=== PATIENT | female | born 1985 | race African-American/Black ===

== ENCOUNTER 2018-01-29 21:07 | Emergency (ER) | payer SELFPAY ==
[2018-01-29 21:49] LABS: Bilirubin Small (Negative); Blood, Urine Moderate (Negative); Clarity TURBID (Clear); Glucose, Urine (Dipstick) Negative (Negative); Leukocyte Negative (Negative); Nitrite Negative (Negative); Protein, Urine (Dipstick) 30 mg/dL (Neg-Trace); Specific Gravity, Urine 1.025 (1.002-1.036); pH, Urine 5.5 (5.0-9.0)
[2018-01-29 21:50] LABS: Pregnancy Test - Urine (BHCG) Negative (Negative); Pregu Control Background? CLEAR/WHITE (CLR/WHITE); Pregu Control Bar Appear? YES (CONTROL BAR); Specific Gravity 1.025 (1.002-1.036)
[2018-01-29 21:51] LABS: Bacteria/HPF None Seen HPF (None Seen); Hyaline Casts/LPF 7-10 HYALINE CAST LPF (0-3 Hyaline)
[2018-01-29] MEDS ORDERED: Ketorolac Tromethamine 60 MG/2 ML VIAL ONE (22:18)
[2018-01-29 22:37] LABS: ALT (SGPT) 8 U/L (8-55); AST (SGOT) 18 U/L (5-34); Albumin 4.3 g/dL (3.5-5.0); Alkaline Phosphatase 91 U/L (40-150); Anion Gap 14 mmol/L (10-20); BUN (Urea Nitrogen) 9 mg/dL (7.0-18.7); Bilirubin, Total 0.8 mg/dL (0.2-1.2); Calc. Creatinine Clearance 0 mL/min (70-130); Calcium 9.2 mg/dL (7.8-10.44); Carbon Dioxide 23 mmol/L (22-29); Chloride 105 mmol/L (98-107); Estimated GFR-MDRD Greater than 90; Globulin 3.6 g/dL (2.4-3.5); Glucose 103 mg/dL (70-105); Lipase 10 U/L (8-78); Potassium 4.1 mmol/L (3.5-5.1); Protein, Total 7.9 g/dL (6.0-8.3); Sodium 138 mmol/L (136-145)
[2018-01-29 22:41] LABS: CKMB 0.7 ng/mL (0-6.6); Troponin I Less than 0.010 ng/mL (< 0.028)
[2018-01-29 22:47] LABS: #Lymphocytes 1.5 thou/uL (1.20-3.40); #Monocytes 0.6 thou/uL (0.11-0.59); #Neutrophils 9.3 thou/uL (1.40-6.50); %Basophils 0.4 % (0.0-1.0); %Lymphocytes 12.9 % (21.0-51.0); %Monocytes 5.6 % (0.0-10.0); %Neutrophils 81.1 % (42.0-75.0); Anisocytosis MODERATE=16-30 cells (100X) (0-5/hpf); Hemoglobin 7.6 g/dL (12.0-16.0); Hypochromia SLIGHT = 6-15 cells (100X) (0-5/hpf); Large Platelets SLIGHT; MDiff Complete? YES; Macrocytosis SLIGHT = 6-15 cells (100X) (0-5/hpf); Mean Corpuscular HGB CONC 29.6 g/dL (32.0-36.0); Mean Corpuscular Hemoglobin 18.8 pg (27.0-31.0); Mean Corpuscular Volume 63.6 fL (78.0-98.0); Mean Platelet Volume 5.9 fL (7.4-10.4); Microcytosis SLIGHT = 6-15 cells (100X) (0-5/hpf); PLT Morphology Comment Appears Adequate; Platelet Count 518 thou/uL (130-400); RBC Distribution Width 30.6 % (11.5-14.5); Red Blood Cell (RBC) Count 4.04 mill/uL (4.20-5.40); White Blood Cell (WBC) Count 11.5 thou/uL (4.8-10.8)
[2018-01-29] MEDS ORDERED: Ondansetron ODT 4 MG TAB ONE (23:24)
== END 2018-01-29 23:30 | disposition home or self-care (01) ==
LOC: ERS 21:07
DX: R10.30 Lower abdominal pain, unspecified (principal); D64.9 Anemia, unspecified; F17.210 Nicotine dependence, cigarettes, uncomplicated
CPT/HCPCS: 36415; 80053; 81003; 81015; 81025; 82150; 82553; 83690; 84484; 85025; 96372; J1885; Q0162

== ENCOUNTER 2020-07-13 18:57 | Inpatient (IN) | payer MEDICAID, SELFPAY ==
[2020-07-13] MEDS ORDERED: Ibuprofen 800 MG TAB ONE (19:36)
[2020-07-13 20:59] LABS: INR-International Normal Ratio 1.1; Prothrombin Time 14.2 sec (12.0-14.7)
[2020-07-13 21:00] LABS: PTT 28.3 sec (22.9-36.1)
[2020-07-13 21:04] LABS: Mean Corpuscular HGB CONC 29.4 g/dL (32.0-36.0); Mean Corpuscular Hemoglobin 17.3 pg (27.0-31.0); Mean Corpuscular Volume 58.8 fL (78.0-98.0); Platelet Count 4 thou/uL (130-400); RBC Distribution Width 28.3 % (11.5-14.5); Red Blood Cell (RBC) Count 3.06 mill/uL (4.20-5.40); Reflex for Review?? YES; White Blood Cell (WBC) Count 8.8 thou/uL (4.8-10.8)
[2020-07-13 21:05] LABS: Hemoglobin 5.3 g/dL (12.0-16.0)
[2020-07-13 21:06] LABS: ALT (SGPT) 14 U/L (8-55); AST (SGOT) 21 U/L (5-34); Albumin 4.5 g/dL (3.5-5.0); Alkaline Phosphatase 84 U/L (40-110); Anion Gap 15 mmol/L (10-20); BUN (Urea Nitrogen) 11 mg/dL (7.0-18.7); Bilirubin, Total 0.8 mg/dL (0.2-1.2); Calc. Creatinine Clearance 0 mL/min (70-130); Calcium 8.6 mg/dL (7.8-10.44); Carbon Dioxide 20 mmol/L (22-29); Chloride 108 mmol/L (98-107); Globulin 3.8 g/dL (2.4-3.5); Glucose 103 mg/dL (70-105); Potassium 3.8 mmol/L (3.5-5.1); Protein, Total 8.3 g/dL (6.0-8.3); Sodium 139 mmol/L (136-145)
[2020-07-13 21:17] LABS: #Lymphocytes 2.4 thou/uL (1.20-3.40); #Monocytes 0.5 thou/uL (0.11-0.59); #Neutrophils 5.9 thou/uL (1.40-6.50); %Eosinophils 0.1 % (0.0-10.0); %Lymphocytes 27.7 % (21.0-51.0); %Monocytes 5.3 % (0.0-10.0); %Neutrophils 66.8 % (42.0-75.0); Hypochromia MARKED = >30 cells (100X) (0-5/hpf); MDiff Complete? YES; Microcytosis MARKED = >30 cells (100X) (0-5/hpf); Platelet Morphology Comment Appears Decreased; Target Cells MODERATE= 6-15 cells (100X) (0-1/hpf); Tear Drops SLIGHT = 2-5 cells (100X) (0-1/hpf)
[2020-07-13 21:29] LABS: Bacteria/HPF None Seen HPF (None Seen); Bilirubin Negative (Negative); Blood, Urine 1+ (Negative); Clarity Clear (Clear); Glucose, Urine (Dipstick) Normal (Negative); Ketone, Urine Negative (Negative); Leukocyte 25 Leu/uL (Negative); Mucous/LPF 1+ LPF (<2+); Nitrite Negative (Negative); Protein, Urine (Dipstick) 30 mg/dL (Neg-Trace); Renal Epithelial 0-3 HPF (None Seen); Specific Gravity, Urine 1.025 (1.002-1.036); Squamous Epithelial 0-3 HPF (0-3); Urobilinogen Normal mg/dL (Less than 2); pH, Urine 5.5 (5.0-9.0)
--- NOTE | 2020-07-13 22:27 | PDOC.FPRHP ---
- History of Present Illness Chief Complaint: Mouth sores History of Present Illness: Patient is a 35 yo female with no significant PMH who presents to the ED for bleeding mouth sores. Per the patient, she noticed the sores 1-2 days ago and they began bleeding shortly after. She reports that she has never had these sores before and that they are a little painful. While in the ED, patient was found to have a Hgb of 5.3 and Plts of 4. During my examination, patient endorsed SOB, CP, fatigue, and weakness for the past week. She denies sick contacts, new medication, or recent illness. She reports that she has heavy men strual cycles that began 3 years ago. She reports that she uses 9 super plus tampons a day along with a pad. Her periods range from 4-11 days. She denies ever being told that she is anemic, but reports that her sister has anemia. ED Course: 1 L NS - Allergies/Adverse Reactions Allergies Allergy/AdvReac Type Severity Reaction Status Date / Time No Known Drug Allergies Allergy Unverified 07/13/20 22:38 - History PMHx: Denies PMH PSHx: CS x 2 FHx: Sister with anemia Social: Smokes 2-4 cigarettes per day since her 20s, drinks 1 limearita each night, denies drugs, not employeed - Review of Systems General: reports: fatigue. denies: fever/chills Eyes: reports: vision changes. denies: eye pain ENT: denies: nasal congestion, rhinorrhea Respiratory: reports: shortness of breath. denies: cough Cardiovascular: reports: chest pain, palpitation Gastrointestinal: denies: nausea, vomiting, abdominal pain, GI bleeding Genitourinary: denies: dysuria, polyuria Skin: reports: rashes. denies: jaundice Musculoskeletal: denies: pain, swelling Neurological: reports: weakness. denies: syncope Psychological: denies: anxiety, depression - Vital signs BP: 109/76 HR: 109 RR: 20 Tmax: 98.5 Pox: 100% on RA Wt: 90 kg - Physical Exam -Constitutional: Anxious appearing, tearful throughout exam HEENT: normocephalic and atraumatic -HEENT: cunjuctival pallor, poor dentition, 2 buccal hematomas on the right buccal membrane Neck: supple, FROM Heart: RRR, normal S1/S2 Lungs: CTAB, no respiratory distress Abdomen: soft, non-tender Musculoskeletal: normal structure, normal tone Neurological: no focal deficit, normal sensation -Skin: pale, dry skin; pale finger nails -Heme/Lymphatic: Petechia noted on the chest, near the right axilla Psychiatric: good judgment and insight -Psychiatric: nervous and anxious appearing, cooperative with exam FMR H&P: Results - Labs Result Diagrams: 07/13/20 20:36 07/13/20 20:36 Lab results: WBC 8.8 thou/uL (4.8-10.8) 07/13/20 20:36 Hgb 5.3 g/dL (12.0-16.0) L* 07/13/20 20:36 Hct 18.0 % (36.0-47.0) L 07/13/20 20:36 MCV 58.8 fL (78.0-98.0) L 07/13/20 20:36 Plt Count 4 thou/uL (130-400) L* 07/13/20 20:36 Neutrophils % 66.8 % (42.0-75.0) 07/13/20 20:36 ESR Westergren 28 mm/hr (Less than 20) H 07/13/20 20:36 Sodium 139 mmol/L (136-145) 07/13/20 20:36 Potassium 3.8 mmol/L (3.5-5.1) 07/13/20 20:36 Chloride 108 mmol/L (98-107) H 07/13/20 20:36 Carbon Dioxide 20 mmol/L (22-29) L 07/13/20 20:36 BUN 11 mg/dL (7.0-18.7) 07/13/20 20:36 Creatinine 0.85 mg/dL (0.6-1.1) 07/13/20 20:36 Glucose 103 mg/dL (70-105) 07/13/20 20:36 Calcium 8.6 mg/dL (7.8-10.44) 07/13/20 20:36 Total Bilirubin 0.8 mg/dL (0.2-1.2) 07/13/20 20:36 AST 21 U/L (5-34) 07/13/20 20:36 ALT 14 U/L (8-55) 07/13/20 20:36 Alkaline Phosphatase 84 U/L (40-110) 07/13/20 20:36 C-Reactive Protein Less than 0.50 mg/dL (= or < 0.5) 07/13/20 20:36 Serum Total Protein 8.3 g/dL (6.0-8.3) 07/13/20 20:36 Albumin 4.5 g/dL (3.5-5.0) 07/13/20 20:36 Urine Ketones Negative mg/dL (Negative) 07/13/20 21:08 Urine Blood 1+ (Negative) A 07/13/20 21:08 Urine Nitrite Negative (Negative) 07/13/20 21:08 Ur Leukocyte Esterase 25 Dioni/uL (Negative) A 07/13/20 21:08 Urine RBC 4-6 HPF (0-3) A 07/13/20 21:08 Urine WBC 4-6 HPF (0-3) A 07/13/20 21:08 Ur Squamous Epith Cells 0-3 HPF (0-3) 07/13/20 21:08 Urine Bacteria None Seen HPF (None Seen) 07/13/20 21:08 FMR H&P: A/P - Problem List (1) Microcytic anemia Current Visit: Yes Status: Acute Code(s): D50.9 - IRON DEFICIENCY ANEMIA, UNSPECIFIED (2) Thrombocytopenia Current Visit: Yes Status: Acute Code(s): D69.6 - THROMBOCYTOPENIA, UNSPECIFIED - Plan Microcytic Anemia - reports SOB, CP, fatigue, weakness - Hgb of 5.3 on admission, MCV: 58.8 - will transfuse 2 units pRBCs and repeat H/H 4 hours post transfusion - denies family history of thalassemia - will obtain LDH, TSH, peripheral smear, iron studies, haptoglobin, HIV, Hep panel - will consult heme/onc in the morning as patient may need bone marrow biopsy Thrombocytopenia - Plts: 4, will transfuse 1 unit and recheck as above - Petechiae on exam and bleeding from buccal hematoms Buccal Hematomas - likely 2/2 to the above - will continue to monitor PCP: none Code: Full PPx: not indicated Diet: Regular IVF: SL Dispo: Admit to oncology for further evaluation; likely LOS > 48 hours FMR H&P: Upper Level - Plan Date/Time: 07/13/202223 Ronaldo Palumbo DO, have evaluated this patient and agree with findings/plan as outlined by internet consultant resident. Pertinent changes/additions are listed here. This is a 35 yo female with no significant pmh who presents to the ER with a cc of mouth sores. She states the sores have been present since before COVID-19 pandemic but recently worsened. She reports they are painful and associated with bleeding. She does admit poor dentition but has not seen a dentist recently. She reports associated orthostasis, dizziness, SOB with exertion, occasional chest pain, palpitations, weakness, and fatigue. She states she had 2 c-sections, one in 2009 and one in 2002 and did not require any blood products at that time. She denies any lifetime blood transfusion or any personal history or familial history of blood disorders. She denies any headaches, focal weakness, hematochezia, melana, abdominal pain, or change in sensation. She states she has swallowed some blood that is making her nauseated. She reports tobacco abuse of ~2 cigarettes per and use to drink a 24 oz beer every night. She denies drug use. No other surgeries Objective: Vitals: BP 109/76, HR 109, RR 20, Temp 98.5, SpO2 100% on RA, Wt 90 kg General: Mildly anxious HEENT: Pt has bucal mucosal hematomas bilaterally, poor dentition, AT/NC, pale conjunctiva Cardio: tachycardic, regular rhythm, no murmurs Lungs: CTAB Abdomen: Soft, non-tender, BS+ Extremities: No swelling, pulses 2+ Skin: petechiae on chest Neuro: Grossly intact A/P Symptomatic hypochromic, microcytic anemia -Admit to medical -Hgb 5.3, will transfuse 2 units of PRBCs -MCV of 55 concerning for hemaglobinopathy, will consult Hematology in the AM -Pending Hep C, HIV, peripheral smear, LDH, TSH -Would consider electropheresis and bone marrow biopsy Symptomatic thrombocytopenia -Platlets of 4,000, pending transfusion of 1 unit of aphoresis platelets -Will monitor and evaluate as above -Coags normal Code: Full Prophylaxis: None Family: None at bedside Fluids: SL Diet: Regular Disposition: DC in 1-2 days PCP: None
[2020-07-14 00:33] LABS: HBCM Index 0.06 S/CO (0-0.79); HBSAg Index 0.14 S/CO (0-0.99); HIV (1/2) Antibody/Antigen Non-Reactive (NonReactive); HIV 1/2 INDEX 0.18 S/CO (<1.00); Hep A IgM AB Non-Reactive (NonReactive); Hep A IgM S/CO 0.06 S/CO (0-0.79); Hep B Surf Ag Non-Reactive S/CO (NonReactive); Hep C IgG Ab Non-Reactive (NonReactive); Hep C Index 0.08 S/CO (0-0.79); Hepatitis B Core IgM Abs Non-Reactive (NonReactive)
[2020-07-14] MEDS ORDERED: Acetaminophen 325 MG TAB ONE (02:31)
[2020-07-14] MEDS: Acetaminophen 325 MG TAB PO PRN ×3 (02:32→20:09)
--- NOTE | 2020-07-14 06:02 | PDOC.FM ---
- Subjective Subjective: Pt resting in bed comfortably this AM. No acute events overnight. States that her mouth is sore and painful and has been spitting out blood overnight. She is tired and fatigued this AM. - Objective Result Diagrams: 07/13/20 20:36 07/13/20 20:36 Phys Exam - Physical Examination Constitutional: NAD HEENT: moist MMs poor dentition, buccal hematomas noted more prominent on R buccal mucosa Neck: supple Respiratory: no wheezing, no rales, no rhonchi, clear to auscultation bilateral Cardiovascular: RRR, no significant murmur, no rub Gastrointestinal: soft, non-tender, no distention, positive bowel sounds Musculoskeletal: pulses present Neurological: moves all 4 limbs Psychiatric: normal affect, A&O x 3 Skin: normal turgor Dx/Plan - Plan Plan: Symptomatic hypochromic, microcytic anemia -Hgb 5.3, in the process of transfusion 2 PRBCs -Hepatitis studies wnl -Peripheral smear, Electrophoresis, Iron studies pending -Monitoring H/H and platelets with CBCs -Will Consult Hematology Symptomatic thrombocytopenia -Platelets of 4,000, pending transfusion of 1 unit of aphoresis platelets, will plan to keep plt above 40K -Will monitor and evaluate as above -Coags normal -Will start decadron for ITP Status of unemployment/uninsured -CM consulted DIET: Regular VTE: None PCP: None CODE: FULL Dispo as of 07/14: Pending laboratory studies. Will consult hematology for further recommendations.
[2020-07-14 06:26] LABS: SARS-CoV-2 MS2 Positive; SARS-CoV-2 N Gene Negative; SARS-CoV-2 S Gene Negative; SARS-CoV-2 by NAA Not Detected (NotDetected); SARS-CoV-2 orf1ab Negative
[2020-07-14 08:27] LABS: #Basophils 0.1 thou/uL (0.0-0.2); #Lymphocytes 2.5 thou/uL (1.20-3.40); #Monocytes 0.5 thou/uL (0.11-0.59); #Neutrophils 4.7 thou/uL (1.40-6.50); %Basophils 1.5 % (0.0-1.0); %Eosinophils 0.1 % (0.0-10.0); %Monocytes 6.5 % (0.0-10.0); %Neutrophils 59.9 % (42.0-75.0); Hemoglobin 6.4 g/dL (12.0-16.0); Mean Corpuscular HGB CONC 31.8 g/dL (32.0-36.0); Mean Corpuscular Hemoglobin 21.4 pg (27.0-31.0); Mean Corpuscular Volume 67.5 fL (78.0-98.0); Platelet Count 2 thou/uL (130-400); RBC Distribution Width 30.1 % (11.5-14.5); Red Blood Cell (RBC) Count 2.96 mill/uL (4.20-5.40); White Blood Cell (WBC) Count 7.9 thou/uL (4.8-10.8)
[2020-07-14 08:33] LABS: Iron 127 ug/dL (50-170); Iron Binding Capacity, Total 498 mcg/dL (265-497)
[2020-07-14 08:34] LABS: Anion Gap 13 mmol/L (10-20); BUN (Urea Nitrogen) 9 mg/dL (7.0-18.7); Calc. Creatinine Clearance 0 mL/min (70-130); Calcium 8.2 mg/dL (7.8-10.44); Carbon Dioxide 21 mmol/L (22-29); Chloride 109 mmol/L (98-107); Glucose 97 mg/dL (70-105); Iron 125 ug/dL (50-170); Potassium 3.5 mmol/L (3.5-5.1); Sodium 139 mmol/L (136-145)
[2020-07-14 08:50] LABS: Ferritin 4.06 ng/mL (10-291)
[2020-07-14 09:02] VITALS: BMI 34.4
[2020-07-14 10:06] LABS: Hypochromia MARKED = >30 cells (100X) (0-5/hpf); MDiff Complete? YES; Microcytosis MARKED = >30 cells (100X) (0-5/hpf); Platelet Morphology Comment Appears Decreased; Polychromasia MODERATE = 3-4 cells (100X) (0-2/hpf); Schistocytes SLIGHT = 2-5 cells (100X) (0-1/hpf)
[2020-07-14] MEDS ORDERED: Dexamethasone 4 MG TAB PO SCH (11:15)
[2020-07-14 12:48] LABS: Hemoglobin 6.1 g/dL (12.0-16.0)
[2020-07-14 12:54] LABS: Platelet Count 4 thou/uL (130-400)
--- NOTE | 2020-07-14 15:23 | HP ---
I have examined the patient and discussed the case with Dr. Yusuf. I agree with her assessment and plan. HISTORY OF PRESENT ILLNESS: Briefly, Ms. Lacey is a pleasant 35-year-old black female with no significant past medical history, who presented to the emergency department where she was noted to have some bleeding, mouth sores x2 days. During her workup, she was found to have a hemoglobin of 5.3 and platelets of 4000. She also states that she has been having extremely heavy menstrual cycles that started three years ago. Her periods also lasting were from 4 to 11 days. PHYSICAL EXAMINATION: VITAL SIGNS: Her blood pressure was 109/76, heart rate was 100, respirations 20. She is afebrile and her room air pulse ox is 100%. GENERAL: She was slightly anxious appearing, but in no acute distress. HEENT: ENT, no erythema or exudate. Did have some conjunctival pallor. NECK: Supple. CARDIAC: Heart rhythm regular. No gallop or murmur noted. LUNGS: Clear. ABDOMEN: Flat and soft. NEUROLOGIC: No focal deficits. LABORATORY DATA: CBC; white count was 8800, hemoglobin was 5.3, hematocrit was 18, MCV was 58.8, and her platelets were 4000. Her white count differential was normal. Chemistries; sodium 139, potassium 3.8, chloride 108, bicarb 20, BUN 11, creatinine 0.85, glucose is 103. Her iron was 127, TIBC was 498, iron saturation 26%, and her ferritin was 4. HIV was negative. SARS negative. Hep C negative. ASSESSMENT: 1. Profound anemia. 2. Profound thrombocytopenia, possibly ITP. PLAN: We will transfuse the patient to hemoglobin of above 7. We will consult with Hematology and give the patient Decadron in anticipation that this is possibly ITP. She had already been given platelets, but this does not seem to have raised her platelet count substantially. Further workup and treatment to occur after consultation with Hematology. Our initial impression that this is likely ITP causing a profound thrombocytopenia resulting in very heavy menstrual bleeding causing anemia. However, we will work this up further after discussion with Hematology. Job ID: [id number]
--- NOTE | 2020-07-14 17:15 | CON ---
DATE OF CONSULTATION: 07/14/2020 HISTORY OF PRESENT ILLNESS: Ms. Lacey is a 35-year-old female, who noticed approximately 2 days prior to admission that she had bleeding of her gums and some mouth sores on her tongue and on her cheeks. She also has noticed over the last 4 to 6 weeks that she has had heavy menstrual cycles. They have been chronically heavy, but they were much worse over the last month. She has been bleeding with lots of clots and has not been taking any iron. She does admit some weakness and fatigue as well as shortness of breath, but no presyncope or syncope. She presented to the emergency room because of the gum bleeding and was found to have platelets of 4000. She was given platelets and a blood transfusion. Her hemoglobin did improve from 5.3 to 6.4, but her platelets went down from 4 to 2. She states that her gums are a little bit better and her tongue seems better. She is not currently having menstrual bleeding. She also has noticed a rash on her chest as well as on her legs. PAST MEDICAL HISTORY: Negative. MEDICATIONS: 1. Tylenol 650 mg p.o. q.4 hours p.r.n. 2. Dexamethasone 40 mg p.o. q.a.m., started this morning after the platelets of 4000. ALLERGIES: NO KNOWN DRUG ALLERGIES. SOCIAL HISTORY: She lives in [place] and has 2 children. She denies anything other than occasional alcohol use. No tobacco use. FAMILY HISTORY: Noncontributory. Negative for any hematologic diseases. REVIEW OF SYSTEMS: Otherwise, 10-point review of systems is negative. PHYSICAL EXAMINATION: VITAL SIGNS: Temperature 99.1, pulse 88, O2 saturation 100% on room air, and blood pressure 109/68. GENERAL: She is alert, awake, and oriented x3, in no acute distress. Quite, pleasant. HEENT: Extraocular muscles are intact. Pupils are reactive to light. Sclerae are anicteric. She does have oral petechiae, but no bleeding in the mouth. CARDIOVASCULAR: Regular rhythm. LUNGS: Clear to auscultation. ABDOMEN: Hypoactive bowel sounds. Soft, nontender, and nondistended. EXTREMITIES: No edema. SKIN: She does have petechial rash pretibially as well as on her chest. LABORATORY DATA: White blood cell count 7.9; hemoglobin 6.4, up from 5.3 on admission; hematocrit 20; platelets 2000 down from 4000. There are no significant schistocytes. She does have polychromasia and hypochromia on her smear. Sodium 139, potassium 3.5, chloride 109, CO2 of 21, BUN 9, creatinine 0.7, glucose 97, and calcium 8.2. Ferritin 4 after a blood transfusion. AST and ALT are normal. Total bilirubin normal. LDH normal with a normal C-reactive protein. ASSESSMENT: Ms. Lacey is a 35-year-old female with,. 1. 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 2. Microcytic anemia consistent with iron deficiency anemia. 3. Weakness secondary to the above. PLAN: 1. We discussed the thrombocytopenia. She has no microangiopathic changes and has no signs of renal failure, no altered mental status. Normal coagulation studies. Because of this, I do not think she has TTP. I suspect this is ITP with an associated bleeding and iron deficiency anemia. She has only been given one dose of dexamethasone. What her platelets are doing tomorrow will be important. If her platelets have not started to increase in the next day or two, I would recommend IVIG, but currently, I do not think she has signs of bleeding. 2. I would recommend giving her IV iron. She is symptomatically stable and therefore blood transfusion may not be warranted, but if her hemoglobin falls again, I would recommend another blood transfusion. 3. We will follow with you. Job ID: [id number]
[2020-07-14 18:35] LABS: Hemoglobin 6.2 g/dL (12.0-16.0); Platelet Count 2 thou/uL (130-400)
[2020-07-15 03:05] LABS: Anion Gap 13 mmol/L (10-20); BUN (Urea Nitrogen) 7 mg/dL (7.0-18.7); Calc. Creatinine Clearance 164 mL/min (70-130); Calcium 8.6 mg/dL (7.8-10.44); Carbon Dioxide 21 mmol/L (22-29); Chloride 111 mmol/L (98-107); Glucose 142 mg/dL (70-105); Potassium 4.2 mmol/L (3.5-5.1); Sodium 141 mmol/L (136-145)
[2020-07-15 03:17] LABS: #Lymphocytes 0.6 thou/uL (1.20-3.40); #Monocytes 0.1 thou/uL (0.11-0.59); #Neutrophils 6.2 thou/uL (1.40-6.50); %Eosinophils 0.1 % (0.0-10.0); %Lymphocytes 8.4 % (21.0-51.0); %Monocytes 0.9 % (0.0-10.0); %Neutrophils 90.6 % (42.0-75.0); Anisocytosis MODERATE=16-30 cells (100X) (0-5/hpf); Hemoglobin 7.3 g/dL (12.0-16.0); Hypochromia MODERATE=16-30 cells (100X) (0-5/hpf); MDiff Complete? YES; Mean Corpuscular HGB CONC 31.8 g/dL (32.0-36.0); Mean Corpuscular Hemoglobin 22.3 pg (27.0-31.0); Mean Corpuscular Volume 70.2 fL (78.0-98.0); Platelet Count 2 thou/uL (130-400); Platelet Morphology Comment Appears Decreased; Polychromasia SLIGHT = 2-3 cells (100X) (0-2/hpf); RBC Distribution Width 30.9 % (11.5-14.5); Red Blood Cell (RBC) Count 3.25 mill/uL (4.20-5.40); White Blood Cell (WBC) Count 6.8 thou/uL (4.8-10.8)
--- NOTE | 2020-07-15 05:43 | PDOC.FM ---
- Subjective Subjective: Pt resting comfortably in bed this AM. No acute events overnight. - Objective Vital Signs & Weight: Vital Signs (12 hours) Temp Pulse Pulse Resp BP BP BP 07/15/20 04:00 98.6 F 77 14 115/78 07/14/20 23:21 98.1 F 89 16 118/57 L 07/14/20 21:50 97.9 F 78 18 124/73 07/14/20 19:00 98.4 F 90 16 123/73 07/14/20 18:37 97.4 F L 71 16 120/68 07/14/20 18:18 97.1 F L 71 16 117/66 Pulse Ox 07/15/20 04:00 100 07/14/20 23:21 100 07/14/20 21:50 07/14/20 19:00 100 07/14/20 18:37 07/14/20 18:18 98 Weight Weight 91 kg I&O: 07/13/20 07/14/20 07/15/20 06:59 06:59 06:59 Intake Total 600 Balance 600 Result Diagrams: 07/15/20 02:03 07/15/20 02:03 Phys Exam - Physical Examination Constitutional: NAD Neck: supple Respiratory: no wheezing, no rales, no rhonchi, clear to auscultation bilateral Cardiovascular: RRR, no significant murmur, no rub Gastrointestinal: soft, non-tender, no distention, positive bowel sounds Musculoskeletal: pulses present Neurological: moves all 4 limbs Psychiatric: normal affect, A&O x 3 Skin: normal turgor Dx/Plan - Plan Plan: Symptomatic hypochromic, microcytic anemia -consistent with iron deficiency anemia -H/H now 7.3/22.8 s/p 3 PRBCs transfusion -Hepatitis studies wnl -Heme consulted, appreciate recommendations of IV iron Symptomatic thrombocytopenia -likely idiopathic thrombocytopenia -Platelets of 2,000, has had 1 transfusion of platelets -Will monitor and evaluate as above -Will continue decadron and appreciate heme recs of IVIG if patient's plt do not improve Status of unemployment/uninsured -CM consulted DIET: Regular VTE: None PCP: None CODE: FULL Dispo as of 07/15: Pending clinical improvement. Heme consulted and appreciate recs. Will implement them today.
[2020-07-15] MEDS ORDERED: Iron, Sodium Ferric Gluconate 125 MG in Sodium Chloride 0.9% 100 ML IVPB SCH (06:30)
[2020-07-15] MEDS: Dexamethasone 4 MG TAB PO SCH (07:40)
[2020-07-15] MEDS ORDERED: Dexamethasone 4 MG TAB PO SCH (08:00)
[2020-07-15] MEDS ORDERED: OCTAGAM 10% 90 GM in Admixture Fee 1 EACH IVPB SCH (15:00)
[2020-07-15] MEDS ORDERED: hydrOXYzine 25 MG TAB PO PRN (21:00)
[2020-07-16 04:49] LABS: Anion Gap 8 mmol/L (10-20); BUN (Urea Nitrogen) 9 mg/dL (7.0-18.7); Calc. Creatinine Clearance 162 mL/min (70-130); Calcium 8.2 mg/dL (7.8-10.44); Carbon Dioxide 24 mmol/L (22-29); Chloride 110 mmol/L (98-107); Glucose 115 mg/dL (70-105); Potassium 4.2 mmol/L (3.5-5.1); Sodium 138 mmol/L (136-145)
[2020-07-16 05:00] LABS: Platelet Count 2 thou/uL (130-400)
[2020-07-16 05:52] LABS: #Lymphocytes 1.1 thou/uL (1.20-3.40); #Monocytes 0.8 thou/uL (0.11-0.59); #Neutrophils 10.7 thou/uL (1.40-6.50); %Basophils 0.1 % (0.0-1.0); %Eosinophils 0.1 % (0.0-10.0); %Lymphocytes 8.4 % (21.0-51.0); %Monocytes 6.7 % (0.0-10.0); %Neutrophils 84.8 % (42.0-75.0); Anisocytosis MODERATE=16-30 cells (100X) (0-5/hpf); Hemoglobin 6.6 g/dL (12.0-16.0); Hypochromia SLIGHT = 6-15 cells (100X) (0-5/hpf); MDiff Complete? YES; Mean Corpuscular HGB CONC 31.1 g/dL (32.0-36.0); Mean Corpuscular Hemoglobin 22.1 pg (27.0-31.0); Microcytosis MODERATE=15-30 cells (100X) (0-5/hpf); Platelet Morphology Comment Appears Decreased; RBC Distribution Width 31.1 % (11.5-14.5); Red Blood Cell (RBC) Count 2.97 mill/uL (4.20-5.40); White Blood Cell (WBC) Count 12.6 thou/uL (4.8-10.8)
--- NOTE | 2020-07-16 06:06 | PDOC.FM ---
- Subjective Subjective: Pt resting comfortably. Tolerating diet. Denies WELDON, vision changes, CP, SOB, N/V, diarrhea, hemaotchezia, melena. - Objective Vital Signs & Weight: Vital Signs (12 hours) Temp Pulse Resp BP Pulse Ox 07/15/20 19:37 97.6 F 68 16 109/68 100 Weight Weight 91 kg I&O: 07/14/20 07/15/20 07/16/20 06:59 06:59 06:59 Intake Total 600 Balance 600 Result Diagrams: 07/16/20 03:35 07/16/20 03:35 Phys Exam - Physical Examination Constitutional: NAD HEENT: sclera anicteric Neck: supple Respiratory: no wheezing, clear to auscultation bilateral Cardiovascular: RRR, no significant murmur Gastrointestinal: soft, non-tender Musculoskeletal: no edema Neurological: non-focal Psychiatric: normal affect Deviation from normal: petechiae see on chest and LE Dx/Plan (1) Microcytic anemia Code(s): D50.9 - IRON DEFICIENCY ANEMIA, UNSPECIFIED Status: Acute (2) Thrombocytopenia Code(s): D69.6 - THROMBOCYTOPENIA, UNSPECIFIED Status: Acute - Plan Plan: 35yo female with no PMH presented with bleeding mouth sores ITP -Platelets of 2,000, s/p platelet transfusion on 07/14 -Heme/Onc recs: decadron, IVIG (given on 07/14) -Will continue to monitor Microcytic anemia likely SHLOMO -H/H 6.6/21.1 -s/p 3u PRBCs transfusion on 07/14 -Hepatitis studies wnl -Heme/Onc consulted: iron infusion (07/15), blood transfusion as needed Tobacco abuse -nicotine patch -encourage cessation Status of unemployment/uninsured -CM consulted DIET: Regular VTE: None PCP: None CODE: FULL Dispo: VSS, asymptomatic. Heme/Onc consulted, appreciate recs, LOS>48hrs Addendum - Attending - Attending Attestation Date/Time: 07/16/202017 I personally evaluated the patient and discussed the management with Dr. Palmer I agree with the History, Examination, Assessment and Plan documented above with any addition or exceptions noted below. ITP and iron def anemia- give 1 U prbc as hgb <7 and high risk for spontaneous bleeding. Appreciate heme/onc recs.
--- NOTE | 2020-07-16 07:31 | PRG ---
DATE OF SERVICE: 07/15/2020 ADDENDUM: This is an addendum to the note of Dr. Kelsi Aragon. I have read the note of Dr. Aragon and discussed it with her. I agree with her assessment and plan. The patient was seen by Hematology, who agreed the patient likely had ITP. They recommended continuing Decadron with the addition of IVIG should she not begin to show increases in her platelet count by tomorrow. Job ID: [id number]
[2020-07-16] MEDS: Dexamethasone 4 MG TAB PO SCH (10:05)
[2020-07-16] MEDS: Acetaminophen 325 MG TAB PO PRN ×2 (10:06→21:36)
[2020-07-16] MEDS: Nicotine 14 MG PATCH TD SCH (10:06)
--- NOTE | 2020-07-16 16:31 | EKG ---
Test Reason : ANEMIA Blood Pressure : / mmHG Vent. Rate : 101 BPM Atrial Rate : 101 BPM P-R Int : 162 ms QRS Dur : 078 ms QT Int : 396 ms P-R-T Axes : 062 023 -01 degrees QTc Int : 513 ms Sinus tachycardia Nonspecific T wave abnormality Abnormal ECG Confirmed by CARL THIBODEAUX M.D. ([id number]), story editor CHARLOTTE FUENTES ([id number]) on 07/16/2020 4:31:42 PM Referred By: INDIRA Confirmed By:CARL THIBODEAUX M.D.
[2020-07-16 21:18] LABS: Hemoglobin 7.3 g/dL (12.0-16.0)
[2020-07-17 04:54] LABS: ALT (SGPT) 19 U/L (8-55); AST (SGOT) 19 U/L (5-34); Albumin 3.6 g/dL (3.5-5.0); Alkaline Phosphatase 59 U/L (40-110); Anion Gap 13 mmol/L (10-20); BUN (Urea Nitrogen) 10 mg/dL (7.0-18.7); Bilirubin, Total 0.4 mg/dL (0.2-1.2); Calc. Creatinine Clearance 155 mL/min (70-130); Carbon Dioxide 20 mmol/L (22-29); Chloride 108 mmol/L (98-107); Globulin 4.5 g/dL (2.4-3.5); Glucose 169 mg/dL (70-105); Potassium 3.7 mmol/L (3.5-5.1); Protein, Total 8.1 g/dL (6.0-8.3); Sodium 137 mmol/L (136-145)
[2020-07-17 05:22] LABS: Platelet Count 4 thou/uL (130-400)
[2020-07-17 05:26] LABS: #Basophils 0.1 thou/uL (0.0-0.2); #Lymphocytes 1.2 thou/uL (1.20-3.40); #Monocytes 0.3 thou/uL (0.11-0.59); #Neutrophils 8.6 thou/uL (1.40-6.50); %Basophils 0.5 % (0.0-1.0); %Eosinophils 0.1 % (0.0-10.0); %Lymphocytes 11.7 % (21.0-51.0); %Neutrophils 84.7 % (42.0-75.0); Anisocytosis MODERATE=16-30 cells (100X) (0-5/hpf); Hemoglobin 7.2 g/dL (12.0-16.0); Hypochromia MODERATE=16-30 cells (100X) (0-5/hpf); MDiff Complete? YES; Mean Corpuscular HGB CONC 31.9 g/dL (32.0-36.0); Mean Corpuscular Hemoglobin 23.9 pg (27.0-31.0); Platelet Morphology Comment Appears Decreased; RBC Distribution Width 31.2 % (11.5-14.5); Red Blood Cell (RBC) Count 2.99 mill/uL (4.20-5.40); White Blood Cell (WBC) Count 10.2 thou/uL (4.8-10.8)
--- NOTE | 2020-07-17 05:53 | PDOC.FM ---
- Subjective Subjective: Pt doing well this morning. Admits to occasional palpitations. Has been ambulating in room, Denies SOB, CP - Objective Vital Signs & Weight: Vital Signs (12 hours) Temp Pulse Resp BP Pulse Ox 07/16/20 18:57 98.4 F 54 L 14 134/69 100 Weight Weight 91 kg I&O: 07/15/20 07/16/20 07/17/20 06:59 06:59 06:59 Intake Total 593 206 3586 Balance 289 689 1648 Result Diagrams: 07/17/20 03:50 07/17/20 03:50 Phys Exam - Physical Examination Constitutional: NAD HEENT: sclera anicteric Neck: supple Respiratory: no wheezing, clear to auscultation bilateral Cardiovascular: RRR, no significant murmur Gastrointestinal: soft Musculoskeletal: no edema Neurological: non-focal Psychiatric: normal affect, A&O x 3 Dx/Plan (1) Microcytic anemia Code(s): D50.9 - IRON DEFICIENCY ANEMIA, UNSPECIFIED Status: Acute (2) Thrombocytopenia Code(s): D69.6 - THROMBOCYTOPENIA, UNSPECIFIED Status: Acute - Plan Plan: 35yo female with no PMH presented with bleeding mouth sores ITP -Platelets of 4,000, s/p platelet transfusion on 07/14 -Heme/Onc recs: decadron, IVIG (given on 07/14) -Will continue to monitor -will reach out to Dr Brown today to discuss treatment goals Microcytic anemia likely SHLOMO -Hg 7.2 -s/p 3u pRBCs transfusion on 07/14, 1u pRBC on 07/16 -Hepatitis studies wnl -Heme/Onc consulted: iron infusion (07/15), blood transfusion as needed Tobacco abuse -nicotine patch -encourage cessation Status of unemployment/uninsured -CM consulted DIET: Regular VTE: None PCP: None CODE: FULL Dispo: VSS. Heme/Onc consulted, appreciate recs, LOS>48hrs Addendum - Attending - Attending Attestation Date/Time: 07/17/20 3130 I personally evaluated the patient and discussed the management with Dr. Palmer. I agree with the History, Examination, Assessment and Plan documented above with any addition or exceptions noted below. ITP-continue steroids Iron def anemia- stable
[2020-07-17] MEDS: Dexamethasone 4 MG TAB PO SCH (10:15)
[2020-07-17] MEDS: Nicotine 14 MG PATCH TD SCH (10:15)
[2020-07-17] MEDS: Acetaminophen 325 MG TAB PO PRN ×2 (10:20→22:23)
[2020-07-18 05:04] LABS: Platelet Count 7 thou/uL (130-400)
[2020-07-18 05:11] LABS: #Lymphocytes 1.6 thou/uL (1.20-3.40); #Monocytes 0.8 thou/uL (0.11-0.59); #Neutrophils 8.2 thou/uL (1.40-6.50); %Basophils 0.1 % (0.0-1.0); %Eosinophils 0.2 % (0.0-10.0); %Lymphocytes 15.3 % (21.0-51.0); %Neutrophils 77.4 % (42.0-75.0); Hemoglobin 7.8 g/dL (12.0-16.0); Mean Corpuscular HGB CONC 31.3 g/dL (32.0-36.0); Mean Corpuscular Hemoglobin 23.7 pg (27.0-31.0); Mean Corpuscular Volume 75.7 fL (78.0-98.0); RBC Distribution Width 31.6 % (11.5-14.5); White Blood Cell (WBC) Count 10.6 thou/uL (4.8-10.8)
[2020-07-18 05:20] LABS: Anion Gap 12 mmol/L (10-20); BUN (Urea Nitrogen) 12 mg/dL (7.0-18.7); Calc. Creatinine Clearance 162 mL/min (70-130); Calcium 8.3 mg/dL (7.8-10.44); Carbon Dioxide 22 mmol/L (22-29); Chloride 108 mmol/L (98-107); Glucose 120 mg/dL (70-105); Potassium 3.9 mmol/L (3.5-5.1); Sodium 138 mmol/L (136-145)
--- NOTE | 2020-07-18 05:40 | PDOC.FM ---
- Subjective Subjective: Pt resting in bed this AM. No acute events overnight. States that her mouth is healing well. Is c/o of pain with deep inspiration. - Objective Vital Signs & Weight: Vital Signs (12 hours) Temp Pulse Resp BP Pulse Ox 07/17/20 19:44 97.9 F 51 L 16 119/63 100 Weight Weight 91 kg I&O: 07/16/20 07/17/20 07/18/20 06:59 06:59 06:59 Intake Total 540 2009 1590 Balance 540 2009 1590 Result Diagrams: 07/19/20 06:16 07/19/20 03:56 Phys Exam - Physical Examination Constitutional: NAD HEENT: moist MMs mouth ulcers healed well Neck: supple Respiratory: no wheezing, no rales, no rhonchi, clear to auscultation bilateral Cardiovascular: RRR, no significant murmur, no rub Gastrointestinal: soft, non-tender, no distention, positive bowel sounds Musculoskeletal: pulses present Neurological: moves all 4 limbs Psychiatric: normal affect, A&O x 3 Skin: normal turgor Dx/Plan - Plan Plan: 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 -Platelets of 7K, s/p platelet transfusion on 07/14 -Heme/Onc recs: decadron, IVIG (given on 07/14) -Will continue to monitor -treatment goals plts 10-15 prior to d/c Microcytic anemia likely SHLOMO -Hg 7.8 -s/p 3u pRBCs transfusion on 07/14, 1u pRBC on 07/16 -Hepatitis studies wnl -Heme/Onc consulted: iron infusion (07/15), blood transfusion as needed Tobacco abuse -nicotine patch -encourage cessation Status of unemployment/uninsured -CM consulted DIET: Regular VTE: None PCP: None CODE: FULL Dispo as of 07/18: VSS and H/H slowly increasing day by day. Goals to increase plts to 10-15K and to continue with steroids. Addendum - Attending - Attending Attestation Date/Time: 07/18/202231 I personally evaluated the patient and discussed the management with Dr. Aragon I agree with the History, Examination, Assessment and Plan documented above with any addition or exceptions noted below - Patient denies any complaints. Afebrile VSS. A/P: 1) ITP- platelets improving. s/p IVIG. Appreciate hematology input. 2) Anemia - continue iron. 3) Menorrhagia - discussed options with patinet. Would like trial of patches. Will have patient follow-up in office and start on patches.
[2020-07-18] MEDS: Acetaminophen 325 MG TAB PO PRN ×4 (08:49→23:54)
[2020-07-18] MEDS: Dexamethasone 4 MG TAB PO SCH (09:07)
[2020-07-18] MEDS: Nicotine 14 MG PATCH TD SCH (09:09)
[2020-07-18] MEDS: Mometasone 100 MCG/Formoterol 5 MCG 120 PUFF INHALER INH SCH ×2 (11:00→19:14)
--- NOTE | 2020-07-18 14:15 | PDOC.MOPN ---
Interval History: On menses, moderate bleeding. No pain. - Vital Signs Vital Signs: Vital Signs (12 hours) Temp Pulse Resp BP Pulse Ox 07/18/20 11:00 44 L 20 100 07/18/20 08:30 44 L 07/18/20 08:00 100 07/18/20 07:56 98.2 F 40 L 18 164/87 H 100 Weight Weight 200 lb 9.93 oz - Physical Exam General: Alert, Oriented x3, No acute distress HEENT: Atraumatic, PERRLA, EOMI, Mucous membr. moist/pink Lungs: Clear to auscultation, Normal air movement Cardiovascular: Regular rate, Normal S1, Normal S2, No murmurs, Gallops, Rubs Abdomen: Normal bowel sounds, Soft, No tenderness, No hepatospenomegaly, No masses Extremities: No clubbing, No cyanosis, No edema, Normal pulses, No tenderness/swelling Skin: No rashes, No breakdown, No significant lesion Neurological: Normal gait, Normal speech, Strength at 5/5 X4 ext, Normal tone, Sensation intact, Cranial nerves 3-12 NL, Reflexes 2+ Psych/Mental Status: Mental status NL, Mood NL - Labs Result Diagrams: 07/18/20 04:15 07/18/20 04:15 Lab results: Laboratory Results - last 24 hr 07/18/20 04:15: WBC 10.6, RBC 3.30 L, Hgb 7.8 L, Hct 25.0 L, MCV 75.7 L, MCH 23.7 L, MCHC 31.3 L, RDW 31.6 H, Plt Count 7 L*, MPV Not Reportable, Neutrophils % 77.4 H, Neutrophils % (Manual) Not Reportable, Lymphocytes % 15.3 L, Monocytes % 7.0, Eosinophils % 0.2, Basophils % 0.1, Neutrophils # 8.2 H, Lymphocytes # 1.6, Monocytes # 0.8 H, Eosinophils # 0.0, Basophils # 0.0 07/18/20 04:15: Sodium 138, Potassium 3.9, Chloride 108 H, Carbon Dioxide 22, Anion Gap 12, BUN 12, Creatinine 0.71, Estimated GFR (MDRD) Greater than 90, Glucose 120 H, Calcium 8.3 Status: lab reviewed by me A/P - Problem (1) Microcytic anemia Current Visit: Yes Code(s): D50.9 - IRON DEFICIENCY ANEMIA, UNSPECIFIED St atus: Acute (2) Thrombocytopenia Current Visit: Yes Code(s): D69.6 - THROMBOCYTOPENIA, UNSPECIFIED Status: Acute - Plan Plan: 1. platelets slowly responding to treatment. Increased from 2>4>7 2. continue dexamethasone, last dose tomorrow 3. needs additional dose of IV iron 4. avoid nsaids, she has been taking at home for back pain. 5. daily CBC, home when platelets around 15K.
[2020-07-18 16:14] LABS: Hemoglobin A2 2.9 % (1.8-3.2); Hemoglobin F 0 % (0.0-2.0); Hemoglobin S 16.1 % (0.0); Interpretation Note: (.)
[2020-07-18] MEDS ORDERED: Iron, Sodium Ferric Gluconate 250 MG in Sodium Chloride 0.9% 100 ML IVPB SCH (17:00)
[2020-07-18] MEDS ORDERED: hydrOXYzine 25 MG TAB PO PRN (20:46)
[2020-07-19 00:26] VITALS: TEMP 97.8
[2020-07-19 04:56] LABS: Anion Gap 13 mmol/L (10-20); BUN (Urea Nitrogen) 15 mg/dL (7.0-18.7); Calc. Creatinine Clearance 162 mL/min (70-130); Calcium 8.1 mg/dL (7.8-10.44); Carbon Dioxide 23 mmol/L (22-29); Chloride 105 mmol/L (98-107); Glucose 132 mg/dL (70-105); Potassium 3.7 mmol/L (3.5-5.1); Sodium 137 mmol/L (136-145)
--- NOTE | 2020-07-19 05:21 | PDOC.FM ---
- Subjective Subjective: Pt resting comfortably this AM. No acute events overnight. - Objective Vital Signs & Weight: Vital Signs (12 hours) Temp Pulse Resp BP Pulse Ox 07/18/20 20:00 97.8 F 57 L 16 109/74 100 07/18/20 19:14 89 16 100 Weight Weight 91 kg I&O: 07/17/20 07/18/20 07/19/20 06:59 06:59 06:59 Intake Total 2009 1590 890 Balance 2009 1590 890 Result Diagrams: 07/19/20 06:16 07/19/20 03:56 Phys Exam - Physical Examination Constitutional: NAD HEENT: moist MMs Neck: supple Respiratory: no wheezing, no rales, no rhonchi, clear to auscultation bilateral Cardiovascular: RRR, no significant murmur, no rub Gastrointestinal: soft, non-tender, no distention, positive bowel sounds Musculoskeletal: pulses present Neurological: normal sensation Psychiatric: A&O x 3 Skin: normal turgor Dx/Plan - Plan Plan: 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 -Platelets of 7K, s/p platelet transfusion on 07/14 -Heme/Onc recs: decadron last dose today, IVIG (given on 07/14) -Will continue to monitor -treatment goals plts 10-15 prior to d/c -today plt 61 Microcytic anemia likely SHLOMO -Hg 7.8 -s/p 3u pRBCs transfusion on 07/14, 1u pRBC on 07/16 -Hepatitis studies wnl -Heme/Onc consulted: iron infusion (07/15), blood transfusion as needed -Hbg electrophoresis showed low Hgb A and Hgb S, 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 Pt will need close outpatient follow up. Will f/u with onc today if they suggest IV iron infusion prior to d/c.
[2020-07-19 06:51] LABS: Hemoglobin 9.4 g/dL (12.0-16.0); Mean Corpuscular HGB CONC 31.7 g/dL (32.0-36.0); Mean Corpuscular Hemoglobin 24.4 pg (27.0-31.0); Mean Platelet Volume 16.5 fL (7.4-10.4); Platelet Count 61 thou/uL (130-400); RBC Distribution Width 34.4 % (11.5-14.5); Red Blood Cell (RBC) Count 3.83 mill/uL (4.20-5.40); White Blood Cell (WBC) Count 27.5 thou/uL (4.8-10.8)
[2020-07-19] MEDS: Mometasone 100 MCG/Formoterol 5 MCG 120 PUFF INHALER INH SCH ×2 (07:47→19:01)
[2020-07-19 08:33] VITALS: BP 133/80
[2020-07-19 08:51] LABS: Anisocytosis MARKED = >30 cells (100X) (0-5/hpf); Hypochromia MODERATE=16-30 cells (100X) (0-5/hpf); Lymphocytes 15 % (21-51); MDiff Complete? YES; Monocytes 6 % (0-10); Neutrophil 79 % (42-75); Platelet Morphology Comment Appears Decreased; Polychromasia MARKED = >4 cells (100X) (0-2/hpf)
[2020-07-19] MEDS: Nicotine 14 MG PATCH TD SCH (10:46)
[2020-07-19] MEDS: Dexamethasone 4 MG TAB PO SCH (10:52)
[2020-07-19] MEDS ORDERED: Dexamethasone 4 MG TAB PO SCH (11:00)
--- NOTE | 2020-07-19 14:28 | PDOC.MOPN ---
Interval History: feels well, no complaints and feels ok to go home - Vital Signs Vital Signs: Vital Signs (12 hours) Temp Pulse Resp BP Pulse Ox 07/19/20 08:00 97.8 F 50 L 16 133/80 97 07/19/20 07:47 48 L 20 98 Weight Weight 200 lb 9.93 oz - Physical Exam General: Alert, Oriented x3, No acute distress HEENT: Atraumatic, PERRLA, EOMI, Mucous membr. moist/pink Lungs: Clear to auscultation, Normal air movement Cardiovascular: Regular rate, Normal S1, Normal S2, No murmurs, Gallops, Rubs Abdomen: Normal bowel sounds, Soft, No tenderness, No hepatospenomegaly, No masses Extremities: No clubbing, No cyanosis, No edema, Normal pulses, No tenderness/swelling Skin: No rashes, No breakdown, No significant lesion Neurological: Normal gait, Normal speech, Strength at 5/5 X4 ext, Normal tone, Sensation intact, Cranial nerves 3-12 NL, Reflexes 2+ Psych/Mental Status: Mental status NL, Mood NL - Labs Result Diagrams: 07/19/20 06:16 07/19/20 03:56 Lab results: Laboratory Results - last 24 hr 07/19/20 06:16: WBC 27.5 H, RBC 3.83 L, Hgb 9.4 L, Hct 29.5 L, MCV 77.0 L, MCH 24.4 L, MCHC 31.7 L, RDW 34.4 H, Plt Count 61 L, MPV 16.5 H, Neutrophils % (Manual) 79 H, Lymphocytes % (Manual) 15 L, Monocytes % (Manual) 6, Lymphocytes # Not Reportable, Hypochromia MODERATE=16-30 cells H, Plt Morphology Comment Appears Decreased L, Polychromasia MARKED = >4 cells H, Anisocytosis MARKED = >30 cells H 07/19/20 03:56: Sodium 137, Potassium 3.7, Chloride 105, Carbon Dioxide 23, Anion Gap 13, BUN 15, Creatinine 0.71, Estimated GFR (MDRD) Greater than 90, Glucose 132 H, Calcium 8.1 07/14/20 07:55: Hemoglobin A 81.0 L, Hemoglobin A2 2.9, Hemoglobin C 0.0, Hemoglobin F () 0, Hemoglobin S 16.1 H, Variant Hemoglobin 0.0, Hgb ELP Interp Note: Status: lab reviewed by me A/P - Problem (1) Microcytic anemia Current Visit: Yes Code(s): D50.9 - IRON DEFICIENCY ANEMIA, UNSPECIFIED Status: Acute (2) Thrombocytopenia Current Visit: Yes Code(s): D69.6 - THROMBOCYTOPENIA, UNSPECIFIED Status: Acute - Plan Plan: 1. ok to dc home 2. follow-up next week 07/28 at 3:00 pm for lab and visit.
== END 2020-07-19 18:50 | disposition home or self-care (01) | DRG 813 ==
LOC: ERS 18:57 → ONC 21:47 → ERHOLD 22:03 → ONC 07-14 07:38
PROVIDERS: ADMIT Family Medicine; ATTEND Family Medicine
PROC: 30233R1 Transfusion of Nonautologous Platelets into Peripheral Vein, Percutaneous Approach (ICD-10-PCS; principal; 2020-07-14)
PROC: 30233N1 Transfusion of Nonautologous Red Blood Cells into Peripheral Vein, Percutaneous Approach (ICD-10-PCS; 2020-07-14)
DX: D69.3 Immune thrombocytopenic purpura (principal); Z20.828 Contact with and (suspected) exposure to other viral communicable diseases; F17.210 Nicotine dependence, cigarettes, uncomplicated; N92.0 Excessive and frequent menstruation with regular cycle; D50.9 Iron deficiency anemia, unspecified
CPT/HCPCS: 36415; 36430; 80048; 80053; 80074; 81003; 81015; 82728; 83010; 83021; 83540; 83550; 83615; 84443; 85025; 85060; 85610; 85652; 85730; 86140; 86850; 86870; 86900; 86901; 86922; 87389; 87635; 93005; J1568; J2916; J3490; J8540; P9016; P9035; U0003

== ENCOUNTER 2021-12-01 12:21 | Emergency (ER) | payer OTHER, SELFPAY ==
[2021-12-01 13:25] LABS: #Lymphocytes 2.1 thou/uL (1.20-3.40); #Monocytes 0.4 thou/uL (0.11-0.59); #Neutrophils 3.1 thou/uL (1.40-6.50); %Basophils 0.5 % (0.0-1.0); %Lymphocytes 37.1 % (21.0-51.0); %Monocytes 6.7 % (0.0-10.0); %Neutrophils 55.6 % (42.0-75.0); Hemoglobin 12.4 g/dL (12.0-16.0); Mean Corpuscular HGB CONC 32.3 g/dL (32.0-36.0); Mean Corpuscular Volume 92.8 fL (78.0-98.0); Mean Platelet Volume 9.7 fL (7.4-10.4); Platelet Count 169 thou/uL (130-400); RBC Distribution Width 11.5 % (11.5-14.5); Red Blood Cell (RBC) Count 4.14 mill/uL (4.20-5.40); White Blood Cell (WBC) Count 5.5 thou/uL (4.8-10.8)
[2021-12-01 13:44] LABS: ALT (SGPT) 19 U/L (8-55); AST (SGOT) 18 U/L (5-34); Albumin 4.3 g/dL (3.5-5.0); Alkaline Phosphatase 58 U/L (40-110); Anion Gap 11 mmol/L (10-20); BUN (Urea Nitrogen) 10 mg/dL (7.0-18.7); Bilirubin, Total 0.8 mg/dL (0.2-1.2); Calc. Creatinine Clearance 0 mL/min (70-130); Calcium 9.1 mg/dL (7.8-10.44); Carbon Dioxide 27 mmol/L (22-29); Chloride 105 mmol/L (98-107); Globulin 2.9 g/dL (2.4-3.5); Glucose 83 mg/dL (70-105); Potassium 3.6 mmol/L (3.5-5.1); Protein, Total 7.2 g/dL (6.0-8.3); Sodium 139 mmol/L (136-145)
[2021-12-01 14:34] LABS: Bilirubin Negative (Negative); Blood, Urine Negative (Negative); Clarity Clear (Clear); Glucose, Urine (Dipstick) Normal (Negative); Ketone, Urine Negative (Negative); Leukocyte Negative Leu/uL (Negative); Nitrite Negative (Negative); Protein, Urine (Dipstick) Negative (Neg-Trace); Specific Gravity, Urine 1.015 (1.002-1.036); Urobilinogen Normal mg/dL (Less than 2)
[2021-12-01 14:35] LABS: Pregnancy Test - Urine (BHCG) Negative (Negative); Specific Gravity 1.015 (1.002-1.036)
[2021-12-01 14:36] LABS: Pregu Control Background? CLEAR/WHITE (CLR/WHITE); Pregu Control Bar Appear? YES (CONTROL BAR)
== END 2021-12-01 15:24 | disposition home or self-care (01) ==
LOC: ERS 12:21
DX: R55 Syncope and collapse (principal); F17.210 Nicotine dependence, cigarettes, uncomplicated; D50.9 Iron deficiency anemia, unspecified
CPT/HCPCS: 36415; 80053; 81003; 81025; 85025; 93005

== ENCOUNTER 2023-12-19 09:20 | Emergency (ER) | payer OTHER, SELFPAY ==
[2023-12-19] MEDS ORDERED: Ketorolac Tromethamine 30 MG (1 mL) VIAL ONE (12:15)
[2023-12-19 12:25] LABS: BHCG - Serum Negative (NEGATIVE); Pregs Control Background? CLEAR/WHITE (CLR/WHITE); Pregs Control Bar Appear? YES (CONTROL BAR)
[2023-12-19 12:36] LABS: CRP,High Sensitivity (Inhouse) 0.03 mg/dL (< or = 0.5)
[2023-12-19 12:37] LABS: ALT (SGPT) 10 U/L (8-55); AST (SGOT) 17 U/L (5-34); Albumin 3.9 g/dL (3.5-5.0); Alkaline Phosphatase 81 U/L (40-110); Anion Gap 13 mmol/L (10-20); BUN (Urea Nitrogen) 7 mg/dL (7.0-18.7); Bilirubin, Total 0.5 mg/dL (0.2-1.2); Calc. Creatinine Clearance 0 mL/min (70-130); Calcium 8.8 mg/dL (7.8-10.44); Carbon Dioxide 22 mmol/L (22-29); Chloride 108 mmol/L (98-107); Estimated GFR 102; Globulin 3.7 g/dL (2.4-3.5); Glucose 96 mg/dL (70-105); Potassium 3.2 mmol/L (3.5-5.1); Protein, Total 7.6 g/dL (6.0-8.3); Sodium 140 mmol/L (136-145)
[2023-12-19 13:00] LABS: #Basophils Less than 0.03 10x3/uL (0.0-0.2); #Eosinphils Less than 0.03 10x3/uL (0.0-0.7); %Basophils 0.2 % (0.0-1.0); %Lymphocytes 26.9 % (21.0-51.0); %Monocytes 7.5 % (0.0-10.0); %Neutrophils 65.2 % (42.0-75.0); Hematocrit 31.2 % (36.0-47.0); Hemoglobin 9.4 g/dL (12.0-16.0); Mean Corpuscular HGB CONC 30.1 g/dL (32.0-36.0); Mean Corpuscular Hemoglobin 22.6 pg (27.0-31.0); Mean Platelet Volume 11.8 fL (7.4-10.4); Platelet Count 174 10x3/uL (130-400); RBC Distribution Width 18.7 % (11.5-14.5); Red Blood Cell (RBC) Count 4.16 mill/uL (4.20-5.40)
[2023-12-19] MEDS ORDERED: Potassium Chloride 20 MEQ TAB ONE (17:02)
== END 2023-12-19 19:14 | disposition short-term general hospital (02) ==
LOC: ERS 09:20
DX: I70.8 Atherosclerosis of other arteries (principal); H35.00 Unspecified background retinopathy; E87.6 Hypokalemia; F17.210 Nicotine dependence, cigarettes, uncomplicated; Z55.6 Problems related to health literacy
CPT/HCPCS: 36415; 70496; 70498; 80053; 83735; 84703; 85025; 86141; 96374; J1885

== ENCOUNTER 2024-08-01 18:02 | Inpatient (IN) | payer MEDICAID, SELFPAY ==
[2024-08-01 19:53] LABS: ALT (SGPT) 8 U/L (8-55); AST (SGOT) 15 U/L (5-34); Alkaline Phosphatase 77 U/L (40-110); Anion Gap 13 mmol/L (10-20); BUN (Urea Nitrogen) 8 mg/dL (7.0-18.7); Bilirubin, Total 0.7 mg/dL (0.2-1.2); CK (CPK) 100 U/L (29-168); Calc. Creatinine Clearance 0 mL/min (70-130); Calcium 8.8 mg/dL (7.8-10.44); Carbon Dioxide 21 mmol/L (22-29); Chloride 109 mmol/L (98-107); Estimated GFR 107; Globulin 3.6 g/dL (2.4-3.5); Glucose 104 mg/dL (70-105); Potassium 3.7 mmol/L (3.5-5.1); Protein, Total 7.6 g/dL (6.0-8.3); Sodium 139 mmol/L (136-145)
[2024-08-01 20:01] LABS: Anisocytosis MODERATE=16-30 cells HPF (0-5); Burr Cells SLIGHT = 2-5 cells HPF (0-1); Hypochromia SLIGHT = 6-15 cells HPF (0-5); Lymphocytes 20 % (21-51); Macrocytosis SLIGHT = 6-15 cells HPF (0-5); Microcytosis SLIGHT = 6-15 cells HPF (0-5); Monocytes 6 % (0-10); Neutrophil 74 % (42-75); Platelet Adequacy Comment Platelets Normal; Polychromasia SLIGHT = 2-3 cells HPF (0-2); Smudge Cells 5.9 %; Target Cells SLIGHT = 2-5 cells HPF (0-1)
[2024-08-01] MEDS ORDERED: methylPREDNISolone Sod Succ 1 GM in Sodium Chloride 0.9% 100 ML IVPB SCH (20:30)
[2024-08-01] MEDS ORDERED: Nicotine 21 MG PATCH TD PRN (20:55)
[2024-08-01] MEDS ORDERED: Ondansetron ODT 4 MG TAB PO PRN (20:55)
[2024-08-01] MEDS ORDERED: Ondansetron PF 4 MG/2 ML Vial IVP PRN (20:55)
[2024-08-01 21:59] LABS: #Basophils Less than 0.03 10x3/uL (0.0-0.2); #Eosinophils Less than 0.03 10x3/uL (0.0-0.7); %Basophils 0.1 % (0.0-1.0); %Lymphocytes 25.6 % (21.0-51.0); %Monocytes 6.3 % (0.0-10.0); %Neutrophils 67.6 % (42.0-75.0); Hemoglobin 9.1 g/dL (12.0-16.0); Mean Corpuscular HGB CONC 30.3 g/dL (32.0-36.0); Mean Corpuscular Hemoglobin 21.9 pg (27.0-31.0); Mean Corpuscular Volume 72.1 fL (78.0-98.0); Mean Platelet Volume 10.8 fL (7.4-10.4); Platelet Count 242 10x3/uL (130-400); RBC Distribution Width 22.5 % (11.5-14.5); Red Blood Cell (RBC) Count 4.16 mill/uL (4.20-5.40)
[2024-08-01 23:44] VITALS: BMI 28.0
[2024-08-02] MEDS: methylPREDNISolone Sod Succ 1 GM in Sodium Chloride 0.9% 250 ML 250 ML IVPB SCH ×2 (00:42→20:17)
[2024-08-02] MEDS: Acetaminophen 325 MG TAB PO PRN (01:16)
[2024-08-02 04:54] LABS: #Basophils Less than 0.03 10x3/uL (0.0-0.2); #Eosinophils Less than 0.03 10x3/uL (0.0-0.7); %Lymphocytes 6.7 % (21.0-51.0); %Monocytes 0.5 % (0.0-10.0); %Neutrophils 92.5 % (42.0-75.0); Hematocrit 28.9 % (36.0-47.0); Hemoglobin 8.9 g/dL (12.0-16.0); Mean Corpuscular HGB CONC 30.8 g/dL (32.0-36.0); Mean Corpuscular Hemoglobin 22.2 pg (27.0-31.0); Mean Corpuscular Volume 72.1 fL (78.0-98.0); Mean Platelet Volume 10.2 fL (7.4-10.4); Platelet Count 237 10x3/uL (130-400); RBC Distribution Width 22.5 % (11.5-14.5); Red Blood Cell (RBC) Count 4.01 mill/uL (4.20-5.40)
[2024-08-02 04:58] LABS: Anion Gap 13 mmol/L (10-20); BUN (Urea Nitrogen) 8 mg/dL (7.0-18.7); Calc. Creatinine Clearance 122 mL/min (70-130); Carbon Dioxide 19 mmol/L (22-29); Chloride 110 mmol/L (98-107); Estimated GFR 96; Glucose 164 mg/dL (70-105); Potassium 3.7 mmol/L (3.5-5.1); Sodium 138 mmol/L (136-145)
[2024-08-02] MEDS: Lorazepam 2 MG/ML VIAL SLOW IVP SCH (11:32)
[2024-08-02] MEDS: Ferrous Sulfate 325 MG TAB PO SCH (15:20)
[2024-08-02 16:02] LABS: Iron 20 ug/dL (50-170); Iron Binding Capacity, Total 465 mcg/dL (265-497)
[2024-08-02 16:29] LABS: Ferritin 5.11 ng/mL (10-291)
[2024-08-03 05:46] LABS: #Basophils Less than 0.03 10x3/uL (0.0-0.2); #Eosinophils Less than 0.03 10x3/uL (0.0-0.7); %Basophils 0.1 % (0.0-1.0); %Monocytes 1.5 % (0.0-10.0); %Neutrophils 93.7 % (42.0-75.0); Hematocrit 28.4 % (36.0-47.0); Hemoglobin 8.8 g/dL (12.0-16.0); Mean Corpuscular Hemoglobin 22.2 pg (27.0-31.0); Mean Corpuscular Volume 71.5 fL (78.0-98.0); Mean Platelet Volume 11.4 fL (7.4-10.4); Platelet Count 252 10x3/uL (130-400); RBC Distribution Width 22.3 % (11.5-14.5); Red Blood Cell (RBC) Count 3.97 mill/uL (4.20-5.40)
[2024-08-03 05:56] LABS: Anion Gap 13 mmol/L (10-20); BUN (Urea Nitrogen) 11 mg/dL (7.0-18.7); Calc. Creatinine Clearance 139 mL/min (70-130); Calcium 8.8 mg/dL (7.8-10.44); Carbon Dioxide 21 mmol/L (22-29); Chloride 111 mmol/L (98-107); Estimated GFR 112; Glucose 142 mg/dL (70-105); Potassium 3.7 mmol/L (3.5-5.1); Sodium 141 mmol/L (136-145)
[2024-08-03] MEDS: Ferrous Sulfate 325 MG TAB PO SCH (08:02)
[2024-08-03] MEDS ORDERED: Cyanocobalamin 1000 MCG/ML VIAL IM SCH (09:00)
[2024-08-03] MEDS: Sodium Ferric Gluconate 250 MG in Sodium Chloride 0.9% 250 ML 250 ML IVPB SCH (10:16)
[2024-08-03] MEDS: Gabapentin 300 MG CAP PO SCH ×2 (10:28→20:21)
[2024-08-04 05:36] LABS: Anion Gap 14 mmol/L (10-20); BUN (Urea Nitrogen) 10 mg/dL (7.0-18.7); Calc. Creatinine Clearance 152 mL/min (70-130); Calcium 8.4 mg/dL (7.8-10.44); Carbon Dioxide 22 mmol/L (22-29); Chloride 110 mmol/L (98-107); Estimated GFR 116; Glucose 171 mg/dL (70-105); Potassium 4.1 mmol/L (3.5-5.1); Sodium 142 mmol/L (136-145)
[2024-08-04 05:41] LABS: Hematocrit 26.3 % (36.0-47.0); Hemoglobin 8.1 g/dL (12.0-16.0); Mean Corpuscular HGB CONC 30.8 g/dL (32.0-36.0); Mean Corpuscular Hemoglobin 22.3 pg (27.0-31.0); Mean Corpuscular Volume 72.5 fL (78.0-98.0); Mean Platelet Volume 10.9 fL (7.4-10.4); Platelet Count 229 10x3/uL (130-400); RBC Distribution Width 22.6 % (11.5-14.5); Red Blood Cell (RBC) Count 3.63 mill/uL (4.20-5.40)
[2024-08-04 06:25] LABS: Hypersegmented Neutrophil SLIGHT (None Seen); Hypochromia SLIGHT = 6-15 cells HPF (0-5); Microcytosis MODERATE=15-30 cells HPF (0-5); Ovalocytes SLIGHT = 2-5 cells HPF (0-1); Platelet Adequacy Comment Platelets Normal; Polychromasia MODERATE = 3-4 cells HPF (0-2)
[2024-08-04 06:36] LABS: #Basophils Less than 0.03 10x3/uL (0.0-0.2); #Eosinophils Less than 0.03 10x3/uL (0.0-0.7); %Basophils 0.1 % (0.0-1.0); %Lymphocytes 3.1 % (21.0-51.0); %Monocytes 1.6 % (0.0-10.0); %Neutrophils 93.7 % (42.0-75.0)
[2024-08-04 11:52] LABS: ANA Symphony (Qualitative) Negative (Negative); ANA Symphony (Quantitative) 0.1 Ratio (< 0.7 Negative); dsDNA IgG Antibody 0.9 IU/mL (<10 Negative)
[2024-08-04] MEDS: Gabapentin 400 MG CAP PO SCH (15:34)
[2024-08-04] MEDS: Methocarbamol 500 MG TAB PO SCH (15:36)
[2024-08-05 05:15] LABS: #Basophils Less than 0.03 10x3/uL (0.0-0.2); #Eosinophils Less than 0.03 10x3/uL (0.0-0.7); %Basophils 0.1 % (0.0-1.0); %Lymphocytes 5.8 % (21.0-51.0); %Monocytes 2.2 % (0.0-10.0); %Neutrophils 90.2 % (42.0-75.0); Hematocrit 26.6 % (36.0-47.0); Hemoglobin 8.1 g/dL (12.0-16.0); Mean Corpuscular HGB CONC 30.5 g/dL (32.0-36.0); Mean Corpuscular Hemoglobin 22.3 pg (27.0-31.0); Mean Corpuscular Volume 73.3 fL (78.0-98.0); Mean Platelet Volume 11.2 fL (7.4-10.4); Platelet Count 233 10x3/uL (130-400); Red Blood Cell (RBC) Count 3.63 mill/uL (4.20-5.40)
[2024-08-05 05:17] LABS: Anion Gap 10 mmol/L (10-20); BUN (Urea Nitrogen) 12 mg/dL (7.0-18.7); Calc. Creatinine Clearance 137 mL/min (70-130); Calcium 8.9 mg/dL (7.8-10.44); Carbon Dioxide 27 mmol/L (22-29); Chloride 108 mmol/L (98-107); Estimated GFR 110; Glucose 160 mg/dL (70-105); Potassium 4.1 mmol/L (3.5-5.1); Sodium 141 mmol/L (136-145)
[2024-08-06 05:43] LABS: #Basophils 0.03 10x3/uL (0.0-0.2); #Eosinophils Less than 0.03 10x3/uL (0.0-0.7); %Basophils 0.2 % (0.0-1.0); %Lymphocytes 16.3 % (21.0-51.0); %Monocytes 6.1 % (0.0-10.0); %Neutrophils 75.4 % (42.0-75.0); Hematocrit 28.9 % (36.0-47.0); Hemoglobin 8.8 g/dL (12.0-16.0); Mean Corpuscular HGB CONC 30.4 g/dL (32.0-36.0); Mean Corpuscular Hemoglobin 22.4 pg (27.0-31.0); Mean Corpuscular Volume 73.7 fL (78.0-98.0); Mean Platelet Volume 11.1 fL (7.4-10.4); Platelet Count 238 10x3/uL (130-400); RBC Distribution Width 23.8 % (11.5-14.5); Red Blood Cell (RBC) Count 3.92 mill/uL (4.20-5.40)
[2024-08-06 05:53] LABS: Calc. Creatinine Clearance 159 mL/min (70-130); Estimated GFR 118
[2024-08-06 05:54] LABS: Anion Gap 12 mmol/L (10-20); BUN (Urea Nitrogen) 14 mg/dL (7.0-18.7); Calcium 8.6 mg/dL (7.8-10.44); Carbon Dioxide 24 mmol/L (22-29); Chloride 107 mmol/L (98-107); Glucose 136 mg/dL (70-105); Potassium 3.7 mmol/L (3.5-5.1); Sodium 139 mmol/L (136-145)
[2024-08-06 12:05] VITALS: TEMP 98.4
[2024-08-06] MEDS: Polyethylene Glycol 3350 17 GM Packet PO SCH (12:23)
[2024-08-06] MEDS: Senokot S 8.6-50 MG TAB PO SCH (12:23)
[2024-08-06 15:09] VITALS: BP 157/92
[2024-08-06] MEDS ORDERED: Senokot S 8.6-50 MG TAB PO SCH (21:00)
[2024-08-07] MEDS ORDERED: Polyethylene Glycol 3350 17 GM Packet PO SCH (09:00)
== END 2024-08-06 14:35 | disposition home or self-care (01) | DRG 99 ==
LOC: ERS 18:02 → OBS 21:03 → OBSVTOIN 08-03 09:35
PROVIDERS: ADMIT Student in an Organized Health Care Education/Training Program; ATTEND Internal Medicine
DX: G37.3 Acute transverse myelitis in demyelinating disease of central nervous system (principal); D50.9 Iron deficiency anemia, unspecified; E53.8 Deficiency of other specified B group vitamins
CPT/HCPCS: 36415; 70553; 72156; 72157; 80048; 80053; 82550; 82607; 82728; 83540; 83550; 85025; 86038; 86225; 93005; 96365; 96375; 96376; G0378; J2060; J2916; J2930; J7050

== ENCOUNTER 2024-09-17 11:39 | Inpatient (IN) | payer MEDICAID ==
[~2024-09-17 11:39] MED LIST: Magnevist 469MG/ML 20 ML VIAL ONE
[2024-09-17 14:20] LABS: #Basophils Less than 0.03 10x3/uL (0.0-0.2); #Eosinophils Less than 0.03 10x3/uL (0.0-0.7); %Basophils 0.1 % (0.0-1.0); %Monocytes 2.6 % (0.0-10.0); %Neutrophils 87.6 % (42.0-75.0); Hematocrit 31.8 % (36.0-47.0); Hemoglobin 10.1 g/dL (12.0-16.0); Mean Corpuscular HGB CONC 31.8 g/dL (32.0-36.0); Mean Corpuscular Hemoglobin 26.2 pg (27.0-31.0); Mean Corpuscular Volume 82.6 fL (78.0-98.0); Mean Platelet Volume 10.8 fL (7.4-10.4); Platelet Count 232 10x3/uL (130-400); RBC Distribution Width 25.1 % (11.5-14.5); Red Blood Cell (RBC) Count 3.85 mill/uL (4.20-5.40)
[2024-09-17] MEDS ORDERED: Glucagon 1 MG/ML KIT IM PRN (14:20)
[2024-09-17] MEDS ORDERED: Dextrose 5% in Water 1,000 ML IV PRN (14:20)
[2024-09-17] MEDS ORDERED: Dextrose 50% Abboject 50 ML SYRINGE SLOW IVP PRN (14:20)
[2024-09-17] MEDS ORDERED: Ondansetron ODT 4 MG TAB PO PRN (14:21)
[2024-09-17] MEDS ORDERED: Senokot S 8.6-50 MG TAB PO PRN (14:21)
[2024-09-17] MEDS ORDERED: Bisacodyl 5 MG TAB PO PRN (14:21)
[2024-09-17] MEDS ORDERED: Insulin Lispro 100 UNIT/ML 10 ML VIAL SC PRN (14:27)
[2024-09-17 14:30] LABS: ALT (SGPT) 38 U/L (Less than 34); AST (SGOT) 37 U/L (11-34); Alkaline Phosphatase 57 U/L (40-110); Anion Gap 14 mmol/L (10-20); BUN (Urea Nitrogen) 14 mg/dL (7.0-18.7); Bilirubin, Total 0.3 mg/dL (0.3-1.2); Calc. Creatinine Clearance 0 mL/min (70-130); Calcium 9.2 mg/dL (7.8-10.44); Carbon Dioxide 23 mmol/L (22-29); Chloride 108 mmol/L (98-107); Estimated GFR 107; Globulin 3.2 g/dL (2.4-3.5); Glucose 101 mg/dL (70-105); Potassium 4.4 mmol/L (3.5-5.1); Protein, Total 7.2 g/dL (6.0-8.3); Sodium 141 mmol/L (136-145)
[2024-09-17 14:44] LABS: Anisocytosis SLIGHT = 6-15 cells HPF (0-5); Band 1 % (5-11); Lymphocytes 6 % (21-51); Monocytes 2 % (0-10); Neutrophil 90 % (42-75); Platelet Adequacy Comment Platelets Normal; Polychromasia SLIGHT = 2-3 cells HPF (0-2); Reactive Lymphocytes 1 % (0-10); Smudge Cells 7.9 %; Target Cells SLIGHT = 2-5 cells HPF (0-1)
[2024-09-17] MEDS ORDERED: Midazolam HCl 2 mg/2 ml Vial ONE (15:18)
[2024-09-17 16:09] LABS: BHCG - Serum Negative (NEGATIVE); Pregs Control Background? CLEAR/WHITE (CLR/WHITE); Pregs Control Bar Appear? YES (CONTROL BAR)
[2024-09-17] MEDS: HYDROCORTISONE SLOW IVP SCH (18:30)
[2024-09-17] MEDS: Ferrous Sulfate 325 MG TAB PO SCH (18:36)
[2024-09-17] MEDS: Pantoprazole 40 MG DR.TAB PO SCH (18:43)
[2024-09-17] MEDS: Methocarbamol 500 MG TAB PO SCH (18:43)
[2024-09-17 19:30] VITALS: BMI 36.0
[2024-09-17] MEDS: methylPREDNISolone Sod Succ 1,000 MG in Sodium Chloride 0.9% 250 ML 250 ML IVPB SCH ×2 (23:31→23:44)
[2024-09-17] MEDS: Gabapentin 400 MG CAP PO SCH (23:33)
[2024-09-18 07:02] LABS: Anion Gap 14 mmol/L (10-20); BUN (Urea Nitrogen) 17 mg/dL (7.0-18.7); Calc. Creatinine Clearance 169 mL/min (70-130); Calcium 9.5 mg/dL (7.8-10.44); Carbon Dioxide 24 mmol/L (22-29); Chloride 106 mmol/L (98-107); Estimated GFR 105; Glucose 146 mg/dL (70-105); Potassium 4.2 mmol/L (3.5-5.1); Sodium 140 mmol/L (136-145)
[2024-09-18] MEDS ORDERED: Hydrocortisone Sod Succ/PF 500 mg/4 ml Vial SLOW IVP SCH (09:00)
[2024-09-18] MEDS: busPIRone HCl 5 MG TAB PO SCH (09:24)
[2024-09-18] MEDS: Lansoprazole 30 MG/10 ML UDCUP PER TUBE SCH (12:04)
[2024-09-18] MEDS: Pregabalin 75 MG CAP PO SCH (20:42)
[2024-09-18] MEDS: methylPREDNISolone Sod Succ 1,000 MG in Sodium Chloride 0.9% 250 ML 250 ML IVPB SCH (23:37)
[2024-09-19] MEDS: Acetaminophen 325 MG TAB PO PRN (16:57)
[2024-09-19] MEDS: Insulin Lispro 100 UNIT/ML 10 ML VIAL SC PRN (17:58)
[2024-09-20 08:37] VITALS: BP 109/73; TEMP 98.7
== END 2024-09-20 14:01 | disposition home or self-care (01) | DRG 99 ==
LOC: ERS 11:39 → T4-A 16:46
PROVIDERS: ADMIT Family Medicine; ATTEND Hospitalist
DX: G37.3 Acute transverse myelitis in demyelinating disease of central nervous system (principal); D50.9 Iron deficiency anemia, unspecified; R74.01 Elevation of levels of liver transaminase levels; F32.A Depression, unspecified; F41.9 Anxiety disorder, unspecified; Z79.1 Long term (current) use of non-steroidal anti-inflammatories (NSAID); Z79.899 Other long term (current) drug therapy
CPT/HCPCS: 36415; 36416; 70553; 72156; 76376; 80048; 80053; 84703; 85025; 96374; J1720; J1815; J2250; J2930; J7050